=== PATIENT | female | born 1990 ===

== ENCOUNTER 2018-07-15 19:01 | Emergency (ER) | payer OTHER ==
[2018-07-15 19:22] VITALS: BP 118/71; PULSE 70; RESP 18; TEMP 98.3; O2SAT 99
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
--- NOTE | 2018-07-16 12:59 | CT ---
Date of service: 07/15/2018 PROCEDURE: CT MAXILLOFACIAL BONES WITHOUT CONTRAST HISTORY: Trauma COMPARISON: None available. TECHNIQUE: Contiguous axial CT images of the maxillofacial bones were obtained. Coronal and sagittal reformats were generated. Radiation dose: Total exam DLP = 740.44 MGy-cm. This CT exam was performed using one or more of the following dose reduction techniques: Automated exposure control, adjustment of the mA and/or kV according to patient size, and/or use of iterative reconstruction technique. FINDINGS: NASAL BONES: Unremarkable. ORBITS: Unremarkable. PARANASAL SINUSES/ MASTOIDS: Frontal sinuses are hypoplastic. The remaining visualized paranasal sinuses are relatively well-developed. Mild mucosal thickening seen within the left maxillary antrum with minimal mucosal thickening and/or tiny fluid level right maxillary antrum. MAXILLA: Unremarkable. MANDIBLE/ TEMPOROMANDIBULAR JOINTS: Unremarkable. SKULL BASE: Unremarkable. TEMPORAL BONES: Middle ears and mastoid grossly unremarkable. OTHER FINDINGS: Poor dentition with multiple carious teeth IMPRESSION: No acute maxillofacial skeletal fractures. Mild mucosal thickening left maxillary sinus with minimal mucosal thickening and/or tiny fluid level right maxillary sinus. The frontal sinuses are hypoplastic. Poor dentition with multiple carious teeth
== END 2018-07-15 21:39 | disposition home or self-care (01) ==
LOC: H.ER 19:01
DX: S00.83XA Contusion of other part of head, initial encounter (principal); Y04.0XXA Assault by unarmed brawl or fight, initial encounter; Y92.89 Other specified places as the place of occurrence of the external cause; F31.9 Bipolar disorder, unspecified

== ENCOUNTER 2018-10-07 12:20 | Emergency (ER) | payer MEDICAID, OTHER ==
--- NOTE | 2018-10-07 12:36 | ED PDOC ---
History of Present Illness History of Present Illness: 28 year old female tobacco-smoker with PMH of substance abuse, schizophrenia, bipolar, depression, and anxiety presents to the ED with sinus congestion and cough for "'at least 3 weeks". Patient reports nasal congestion with yellow/green rhinorrhea and a cough productive of green and yellow sputum. Associated difficulty taking deep breaths, that gets worse in the cold. Pt was seen yesterday at [facility] for similar complaints, but eloped before she could be evaluated or treated. Pt states she has low blood pressure at baseline. Tolerating PO per baseline. She has been a heavy smoker since she was 12 years old. Denies fever, chills, abdominal pain, N/V/D, chest pain, palpitations, headache, dizziness, vision changes, and other medical complaints. PMD: none provided HPI: Influenza Time Seen by Provider: 10/07/18 12:35 Chief Complaint: Cough, Cold, Congestion Chief Complaint (Provider): Cough and shortness of breath History Per: Patient Exam Limitations: no limitations Onset/Duration Of Symptoms: Days (x 3 weeks ) Symptoms include: cough, nasal congestion. denies: fever, headache, sore throat, vomiting, diarrhea, chest pain Past Medical History Reviewed: Historical Data, Nursing Documentation, Vital Signs Vital Signs: Last Vital Signs Temp 98.5 F 10/07/18 12:22 Pulse 99 H 10/07/18 12:22 Resp 16 10/07/18 12:22 BP 98/41 L 10/07/18 12:22 Pulse Ox 99 10/07/18 12:22 - Medical History PMH: Anemia, Anxiety, Bipolar Disorder, Depression, Schizophrenia Denies: Asthma, Diabetes, Hepatitis, HIV, HTN, Seizures, Sexually Transmitted Disease - Surgical History Surgical History: No Surg Hx - Family History Family History: States: Unknown Family Hx - Social History Current smoker - smoking cessation education provided: Yes (1-2 cigarettes/day) Drugs: Denies - Immunization History Hx Tetanus Toxoid Vaccination: No Hx Influenza Vaccination: No Hx Pneumococcal Vaccination: No - Home Medications Home Medications: Ambulatory Orders Medication Instructions Recorded Ibuprofen [Ibu] 400 mg PO Q4 #30 tablet 09/09/18 Sulfamethoxazole/Trimethoprim 1 each PO BID #14 tablet 09/09/18 [Bactrim 400-80 mg Tablet] Albuterol HFA [Ventolin HFA 90 2 puff IH Q6H PRN #60 puff 10/07/18 mcg/actuation (8 g)] Amoxicillin/Clavulanate [Augmentin 1 tab PO Q12H #20 tab 10/07/18 875 MG-125 MG] Benzonatate [Tessalon Perle] 100 mg PO Q8H PRN #21 capsule 10/07/18 - Allergies Allergies/Adverse Reactions: Allergies Allergy/AdvReac Type Severity Reaction Status Date / Time No Known Allergies Allergy Verified 11/12/17 07:55 Review of Systems ROS Statement: Except As Marked, All Systems Reviewed And Found Negative Constitutional: Negative for: Fever, Chills Eyes: Negative for: Vision Change ENT: Positive for: Nose Congestion. Negative for: Throat Pain Cardiovascular: Negative for: Chest Pain, Palpitations, Light Headedness Respiratory: Positive for: Cough, Shortness of Breath, Sputum (green and yellow ). Negative for: SOB with Exertion Gastrointestinal: Negative for: Nausea, Vomiting, Abdominal Pain Genitourinary Female: Negative for: Dysuria, Frequency Musculoskeletal: Negative for: Neck Pain, Back Pain Skin: Negative for: Rash Neurological: Negative for: Weakness, Numbness, Headache, Dizziness Physical Exam - Reviewed Nursing Documentation Reviewed: Yes Vital Signs Reviewed: Yes - Physical Exam Appears: Positive for: Well (Patient is very thin. ), Non-toxic, No Acute Distress Head Exam: Positive for: ATRAUMATIC, NORMAL INSPECTION, NORMOCEPHALIC Skin: Positive for: Normal Color, Warm, Dry Eye Exam: Positive for: EOMI, Normal appearance, PERRL ENT: Positive for: Normal ENT Inspection, Pharynx Is (normal), TM Is/Are (normal), Sinus Pain/Drainage (mild frontal sinus pain to percussion), Nasal Congestion. Negative for: Pharyngeal Erythema, Tonsillar Exudate, Tonsillar Swelling Neck: Positive for: Normal, Painless ROM, Supple. Negative for: Pain On Movement Of Neck Cardiovascular/Chest: Positive for: Regular Rate, Rhythm. Negative for: Murmur Respiratory: Positive for: Wheezing (very mild intermittent bilateral expiratory wheezing), Other (patient speaking in full sentences; no respiratory distress). Negative for: Accessory Muscle Use, Crackles, Rales, Rhonchi, Respiratory Distress, Plerual Rub Pulses-Radial (L): 2+ Pulses-Radial (R): 2+ Gastrointestinal/Abdominal: Positive for: Normal Exam, Bowel Sounds (normoactive), Soft. Negative for: Tenderness Back: Positive for: Normal Inspection. Negative for: L CVA Tenderness, R CVA Tenderness Extremity: Positive for: Normal ROM, Capillary Refill (<2s). Negative for: Deformity, Swelling Lymphatic: Positive for: Normal Exam. Negative for: Adenopathy Neurologic/Psych: Positive for: Alert, Oriented, Mood/Affect (uncooperative; aggressive towards nursing staff), Gait (steady). Negative for: Motor/Sensory Deficits Medical Decision Making Medical Decision Makin:37 Initial Plan: --CXR --Duoneb 3 ml INH --Peak flow pre/post --urine preg 13:45 --Duoneb 3 ml INH --Initial peak flow 100 13:55 --upon reevaluation, patient reports an improvement of symptoms and is requesting a sandwich for her and her . Will be given another nebulizer treatment and reevaluated. 14:40 --Patient is feeling much better. CXR shows no active disease and peak flow is now 250. --She will discharged home with Augmentin, Tessalon perles and Ventolin inhaler. 14:57 --Patient is stable and ready for discharge. However, she states that she does not have a ride home. Will call patient liaison Gayla to come speak with patient. Plan of care discussed with patient, and strict instructions given regarding prescriptions, importance of follow up, and signs to return to Emergency Department, to include difficulty breathing, fever, chills, vomiting, or any other new/worsening symptoms. Patient verbalizes understanding of discussion. Patient A&Ox3, ambulating with steady gait, stable for discharge home. 15:00 --Patient was able to find a ride home. Ambulated with steady gait out of the ED without assistance. Continues to be in no respiratory distress. Scribe Attestation: Documented by Natalia Ramsey, acting as a scribe for Radha Doan PA-C Provider Scribe Attestation: All medical record entries made by the Scribe were at my direction and personally dictated by me. I have reviewed the chart and agree that the record accurately reflects my personal performance of the history, physical exam, medical decision making, and the department course for this patient. I have also personally directed, reviewed, and agree with the discharge instructions and disposition. - ECG O2 Sat by Pulse Oximetry: 99 (RA) Pulse Ox Interpretation: Normal - Radiology X-Ray: Read By Radiologist X-Ray Interpretation: No Acute Disease Disposition - Clinical Impression Clinical Impression: Sinusitis, Bronchitis - Disposition Referrals: [facility] [Outside] Disposition: Routine/Home Disposition Time: 14:45 Condition: IMPROVED Additional Instructions: Stop Smoking Increase fluids to stay hydrated Take antibiotic twice daily for 10 days Use inhaler 2 puffs every 6 hours as needed Followup with primary doctor or clinic within 2 days Return to ER for new/worsening symptoms Prescriptions: Albuterol HFA [Ventolin HFA 90 mcg/actuation (8 g)] 2 puff IH Q6H PRN #60 puff PRN Reason: asthma Amoxicillin/Clavulanate [Augmentin 875 MG-125 MG] 1 tab PO Q12H #20 tab Benzonatate [Tessalon Perle] 100 mg PO Q8H PRN #21 capsule PRN Reason: Cough Instructions: Sinusitis in Adults, Cough in Adults Forms: [facility] (Chadian), [facility] ED School/Work Excuse
[2018-10-07] MEDS ORDERED: Albuterol-Ipratrop 3 mg / 0.5 (3 ml) UD INH STA ×2 (13:02→13:45)
[2018-10-07] MEDS ORDERED: Albuterol-Ipratrop 3 mg / 0.5 (3 ml) UD ONE ×2 (13:15→14:09)
[2018-10-07 13:31] VITALS: O2SAT 99
--- NOTE | 2018-10-07 14:25 | RAD ---
Date of service: 10/07/2018 HISTORY: cough COMPARISON: No prior. TECHNIQUE: Chest PA and lateral FINDINGS: LUNGS: No active pulmonary disease. PLEURA: No significant pleural effusion identified. No pneumothorax apparent. CARDIOVASCULAR: No aortic atherosclerotic calcification present. Normal cardiac size. No pulmonary vascular congestion. OSSEOUS STRUCTURES: No significant abnormalities. VISUALIZED UPPER ABDOMEN: Normal. OTHER FINDINGS: None. IMPRESSION: No acute cardiopulmonary disease appreciated.
[2018-10-07] MEDS ORDERED: Amoxicillin-Clav 875-125 mg Tab PO STA (14:52)
[2018-10-07] MEDS ORDERED: Amoxicillin-Clav 875-125 mg Tab PO ONE (15:05)
[2018-10-07 15:07] VITALS: BP 108/77; PULSE 82; RESP 15; TEMP 97.9
== END 2018-10-07 15:13 | disposition home or self-care (01) ==
LOC: H.ER 12:20
DX: J40 Bronchitis, not specified as acute or chronic (principal); J32.9 Chronic sinusitis, unspecified; R09.81 Nasal congestion; F17.210 Nicotine dependence, cigarettes, uncomplicated; F31.9 Bipolar disorder, unspecified

== ENCOUNTER 2019-04-04 19:20 | Emergency (ER) | payer MEDICAID, OTHER ==
[2019-04-04 19:25] VITALS: RESP 16; O2SAT 100
--- NOTE | 2019-04-04 20:28 | ED PDOC ---
Upper Extremity Pain/Injury Time Seen by Provider: 04/04/19 19:50 Chief Complaint (Nursing): Finger,Hand,&Wrist Chief Complaint (Provider): Right Hand Deformity History Per: Patient History/Exam Limitations: no limitations Onset/Duration Of Symptoms: Hrs (earlier today) Current Symptoms Are (Timing): Still Present Additional Complaint(s): 28 year old female presents to the ED via [facility] for evaluation of reported pain and deformity to her right hand. Patient states she thinks she fell earlier today, but admits to frequently using heroin. Denies symptoms of w ithdrawal at this time. Past Medical History Reviewed: Historical Data, Nursing Documentation, Vital Signs Vital Signs: Last Vital Signs Temp 98.8 F 04/04/19 19:23 Pulse 82 04/04/19 19:23 Resp 16 04/04/19 19:23 BP 108/76 04/04/19 19:23 Pulse Ox 100 04/04/19 19:23 Primary Care Provider: FAMILY PROVIDER,NO - Medical History PMH: Anemia, Anxiety, Bipolar Disorder, Depression, Schizophrenia Denies: Asthma, Diabetes, Hepatitis, HIV, HTN, Seizures, Sexually Transmitted Disease - Surgical History Surgical History: No Surg Hx - Family History Family History: States: Unknown Family Hx - Social History Drugs: Other (heroin) - Immunization History Hx Tetanus Toxoid Vaccination: No Hx Influenza Vaccination: No Hx Pneumococcal Vaccination: No - Home Medications Home Medications: Ambulatory Orders Medication Instructions Recorded Naloxone HCl 2 mg JA ONCE PRN #1 ml 04/04/19 - Allergies Allergies/Adverse Reactions: Allergies Allergy/AdvReac Type Severity Reaction Status Date / Time No Known Allergies Allergy Verified 12/12/18 21:31 Review of Systems ROS Statement: Except As Marked, All Systems Reviewed And Found Negative Musculoskeletal: Positive for: Hand Pain (right hand pain and deformity) Psych: Negative for: Withdrawal Physical Exam - Reviewed Nursing Documentation Reviewed: Yes Vital Signs Reviewed: Yes - Physical Exam Appears: Positive for: No Acute Distress (but disheveled appearing) Skin: Positive for: Normal Color, Warm Cardiovascular/Chest: Positive for: Regular Rate, Rhythm Respiratory: Positive for: Normal Breath Sounds. Negative for: Respiratory Distress Pulses-Radial (L): 2+ Pulses-Radial (R): 2+ Extremity: Positive for: Normal ROM (right hand, digits, and wrist), Deformity (right hand 3rd and 4th digit: deformity to mips), Swelling (right hand 3rd and 4th digit: swelling), Other (track freeman visible to bilateral arms; erythema to bilateral hands) Neurological/Psych: Positive for: Awake, Alert, Oriented (x3). Negative for: Motor/Sensory Deficits - ECG O2 Sat by Pulse Oximetry: 100 (RA) Pulse Ox Interpretation: Normal Medical Decision Making Medical Decision Making: Time: 1949 Impression: injury to right hand, subacute v acute --no signs of infection at injection sites and no signs of withdrawal at this time Plan: --Right hand XR 2105 XRs reviewed by me: fractures seen to third and fourth digits; fourth digit looks like an old fracture with increased bone density; third digit is subacute. Fingers to be placed in splint and stable for discharge. Scribe Attestation: Documented by Lisa Muñoz, acting as a scribe for Kalli Ferguson MD. Provider Scribe Attestation: All medical record entries made by the Scribe were at my direction and personally dictated by me. I have reviewed the chart and agree that the record accurately reflects my personal performance of the history, physical exam, medical decision making, and the department course for this patient. I have also personally directed, reviewed, and agree with the discharge instructions and disposition. Disposition - Clinical Impression Clinical Impression: Finger fracture, right - Disposition Disposition Time: 21:09 Condition: STABLE Prescriptions: Naloxone HCl 2 mg JA ONCE PRN #1 ml PRN Reason: Opiate Reversal Instructions: Finger Fracture (DC) Forms: [employer] (Malawian) Print Language: EAST TIMORESE
[2019-04-04 21:26] VITALS: BP 116/70; PULSE 84; TEMP 98.9
--- NOTE | 2019-04-05 11:08 | RAD ---
PROCEDURE: Right Hand Radiographs. HISTORY: deformity to 3rd and 4th fingers. No history of recent/ related trauma provided. COMPARISON: None. TECHNIQUE: 3 views obtained. FINDINGS: BONES: Normal. No fracture. JOINTS: Deformity proximal interphalangeal joint 4th digit region. SOFT TISSUES: Fourth digit soft tissue swelling. OTHER FINDINGS: None. IMPRESSION: Flexure contracture deformity 4th digit. Considerable soft tissue swelling noted. There is no recent history of trauma. No visible fracture.
== END 2019-04-04 21:24 | disposition home or self-care (01) ==
LOC: H.ER 19:20
DX: S62.602A Fracture of unspecified phalanx of right middle finger, initial encounter for closed fracture (principal); S62.614A Displaced fracture of proximal phalanx of right ring finger, initial encounter for closed fracture; W19.XXXA Unspecified fall, initial encounter; Y92.89 Other specified places as the place of occurrence of the external cause; F31.9 Bipolar disorder, unspecified